=== PATIENT | male | born 1940 | race Caucasian/White ===

== ENCOUNTER 2018-08-19 10:17 | Emergency (ER) | payer MEDICARE, BC ==
[~2018-08-19] VITALS: Ht 188 cm; Wt 90.0 kg
[2018-08-19] MEDS ORDERED: OMNICEF300 M1 PO (10:48)
[2018-08-19] MEDS ORDERED: DOXYCYC MONO100 M2 PO (10:48)
[2018-08-19] MEDS ORDERED: ELIQUIS5 MG PO (11:01)
[2018-08-19] MEDS ORDERED: LISINOPRIL10 M1 PO (11:01)
[2018-08-19] MEDS ORDERED: FAMOTIDINE20 M1 PO (11:02)
[2018-08-19] MEDS ORDERED: ATORVASTATIN CA40 MG PO (11:03)
[2018-08-19] MEDS ORDERED: IPRATROPIUM BR0.03 % NAB (11:04)
[2018-08-19 11:59] VITALS: BP 130/71
== END 2018-08-19 11:59 | disposition home or self-care (01) ==
LOC: ED 10:17
DX: L03.114 Cellulitis of left upper limb (principal); S61.412A Laceration without foreign body of left hand, initial encounter; I10 Essential (primary) hypertension; I48.91 Unspecified atrial fibrillation; E78.5 Hyperlipidemia, unspecified; W26.0XXA Contact with knife, initial encounter; Y93.G1 Activity, food preparation and clean up; Y92.009 Unspecified place in unspecified non-institutional (private) residence as the place of occurrence of the external cause

== ENCOUNTER 2018-08-20 12:22 | Emergency (ER) | payer MEDICARE, BC ==
[~2018-08-20] VITALS: Ht 188 cm; Wt 86.0 kg
[~2018-08-20 12:22] MED LIST: ATORVASTATIN CA40 MG PO; DOXYCYC MONO100 M2 PO; ELIQUIS5 MG PO; FAMOTIDINE20 M1 PO; IPRATROPIUM BR0.03 % NAB; LISINOPRIL10 M1 PO; OMNICEF300 M1 PO
[2018-08-20 13:26] VITALS: BP 120/64
== END 2018-08-20 13:26 | disposition home or self-care (01) ==
LOC: ED 12:22
DX: S61.412D Laceration without foreign body of left hand, subsequent encounter (principal); I10 Essential (primary) hypertension; I48.91 Unspecified atrial fibrillation; E78.5 Hyperlipidemia, unspecified; X58.XXXD Exposure to other specified factors, subsequent encounter

== ENCOUNTER 2018-12-03 10:48 | Emergency (ER) | payer MEDICARE, BC ==
[~2018-12-03] VITALS: Ht 188 cm; Wt 105.0 kg
[2018-12-03 11:48] LABS: HEMATOCRIT 38.4 % (39.0-50.0); HEMOGLOBIN 12.7 g/dl (14.0-18.0); IMMATURE GRANULOCYTES 0.3 % (0.0-5.0); MEAN CELL VOLUME 88.1 fL CALC (80.0-100.0); MEAN CORPUSCULAR HGB 29.1 pG CALC (26.0-32.0); MEAN CORPUSCULAR HGB CONC 33.1 g/L CALC (32.0-36.0); NEUT# 5.42 thou/uL (1.82-7.42); RED BLOOD COUNT 4.36 mill/uL (4.70-6.10); RED CELL DISTRI WIDTH 13.8 % (11.5-15.5)
[2018-12-03 12:06] LABS: ANION GAP 16 (6-22 (CALC)); BUN 10 mg/dL (8-23); BUN/CREATININE RATIO 14 (12-20 (CALC)); CARBON DIOXIDE 21 mmol/l (22-30); CHLORIDE 99 mmol/l (95-108); CREATININE 0.7 mg/dL (0.7-1.3); GFR > 60 ML/MIN (>=60 (CALC)); GFR FOR AFR.AMER. > 60 ML/MIN (>=60 (CALC)); POTASSIUM 4.4 mmol/l (3.5-5.1); SODIUM 131 mmol/l (137-146)
[2018-12-03 12:52] LABS: URINE BILIRUBIN - DIPSTICK NEGATIVE (NEGATIVE); URINE BLOOD DIPSTICK NEGATIVE (NEGATIVE); URINE COLOR YELLOW; URINE GLUCOSE - DIPSTICK NEGATIVE (NEGATIVE); URINE KETONE NEGATIVE (NEGATIVE); URINE LEUK ESTERASE NEGATIVE (NEGATIVE); URINE NITRITE - DIPSTICK NEGATIVE (Negative); URINE PROTEIN - DIPSTICK NEGATIVE (NEG-TRACE); URINE SPECIFIC GRAVITY <=1.005; URINE UROBILINOGEN - DIPSTICK 0.2 E.U./dL (0.2)
[2018-12-03 13:17] VITALS: BP 136/67
== END 2018-12-03 13:23 | disposition home or self-care (01) ==
LOC: ED 10:48
PROVIDERS: Family Medicine
DX: R06.02 Shortness of breath (principal); I10 Essential (primary) hypertension; I48.91 Unspecified atrial fibrillation; E78.5 Hyperlipidemia, unspecified

== ENCOUNTER 2022-04-20 10:34 | Emergency (ER) | payer MEDICARE, BC ==
[~2022-04-20] VITALS: Ht 188 cm; Wt 86.3 kg
[2022-04-20 10:45] VITALS: BP 168/69
[2022-04-20 11:00] VITALS: BP 159/70
[2022-04-20] MEDS ORDERED: CYCLOBENZAPRINE10 MG PO (11:23)
[2022-04-20] MEDS ORDERED: NAPROXEN500 MG PO (11:23)
[2022-04-20 11:31] VITALS: BP 164/62
== END 2022-04-20 11:45 | disposition home or self-care (01) ==
LOC: ED 10:34
DX: S73.101A Unspecified sprain of right hip, initial encounter (principal); I10 Essential (primary) hypertension; I48.91 Unspecified atrial fibrillation; E78.5 Hyperlipidemia, unspecified; K21.9 Gastro-esophageal reflux disease without esophagitis; W01.0XXA Fall on same level from slipping, tripping and stumbling without subsequent striking against object, initial encounter; Y93.K1 Activity, walking an animal; Y92.009 Unspecified place in unspecified non-institutional (private) residence as the place of occurrence of the external cause